=== PATIENT | male | born 1975 ===

== ENCOUNTER 2022-09-03 17:09 | Emergency (ER) | payer OTHER ==
[~2022-09-03] VITALS: Ht 177.8 cm; Wt 110.0 kg
[2022-09-03] MEDS ORDERED: EPINEPHrine 1:10,000 [1 MG/10 ML] SYRINGE IVP ONE (17:12)
[2022-09-03 17:20] LABS: BASOPHILS % (AUTO) 0.7 % (0.0-2.0); EOSINOPHILS % (AUTO) 0.2 % (1.0-6.0); HEMATOCRIT 39.8 % (41-53); HEMOGLOBIN 12.4 g/dL (13.5-17.5); LYMPHOCYTES # (AUTO) 5.3 K/uL (1.0-4.8); LYMPHOCYTES % (AUTO) 17.3 % (22.0-44.0); MEAN CORPUSCULAR HEMOGLOBIN 30.1 pg (26.0-34.0); MEAN CORPUSCULAR HGB CONC 31.2 G/dL (31.0-37.0); MEAN CORPUSCULAR VOLUME 96 fL (80-100); MONOCYTES # (AUTO) 1.7 K/uL (0.1-1.0); MONOCYTES % (AUTO) 5.4 % (2.0-9.0); NEUTROPHILS # (AUTO) 23.6 K/uL (1.8-7.7); NEUTROPHILS % (AUTO) 76.4 % (40.0-70.0); PLATELET COUNT (AUTO) 366 K/uL (150-450); RED BLOOD CELL COUNT(AUTO) 4.13 MIL/uL (4.50-5.90); RED CELL DISTRIBUTION WIDTH 14.1 % (11.5-14.5)
[2022-09-03] MEDS ORDERED: PIPERACILLIN/TAZO 3.375 GM/D5W 50 ML IV ONE (17:30)
[2022-09-03] MEDS ORDERED: VANCOMYCIN 1GM/WATER(PEG/NADA) 200 ML IV ONE (17:30)
[2022-09-03 17:37] LABS: APPEARANCE,URINE HAZY (CLEAR); BILIRUBIN,URINE NEGATIVE (NEGATIVE); GLUCOSE, URINE (UA) >=1000 mg/dL (NEGATIVE); KETONES,URINE NEGATIVE (NEGATIVE); LEUKOCYTE ESTERASE ,URINE LARGE (NEGATIVE); NITRATE,URINE NEGATIVE (NEGATIVE); OCCULT BLOOD,URINE LARGE (NEGATIVE); PROTEIN,URINE 30-70 mg/dL (NEGATIVE); SPECIFIC GRAVITIY, URINE 1.013 (1.003-1.030); UROBILINOGEN,URINE <=1.0 mg/dL (<=1.0)
[2022-09-03] MEDS ORDERED: VASOPRESSIN 40 UNITS in DEXTROSE 5%-WATER 98 ML IV PRN (17:45)
[2022-09-03 17:47] LABS: AMPHET/METH SCREEN,URINE POSITIVE (NEGATIVE); BARBITURATE SCREEN, URINE NEGATIVE (NEGATIVE); BENZODIAZEPINES SCREEN,URINE NEGATIVE (NEGATIVE); CANNABINOID SCREEN,URINE NEGATIVE (NEGATIVE); COCAINE SCREEN,URINE NEGATIVE (NEGATIVE); METHADONE SCREEN, URINE NEGATIVE (NEGATIVE); OPIATE SCREEN,URINE NEGATIVE (NEGATIVE)
[2022-09-03 17:48] LABS: B-TYPE NATRIURETIC PEPTIDE 137 pg/mL (0-100); INR 1.6 (0.9-1.1); PROTHROMBIN TIME 16.4 SEC (9.4-11.6)
[2022-09-03 17:50] LABS: PHENCYCLIDINE SCREEN,URINE NEGATIVE (NEGATIVE)
[2022-09-03 17:53] LABS: BACTERIA,URINE Many /HPF (None Seen); SQUAMOUS EPITHELIAL CELL,UR Few /LPF (None Seen)
[2022-09-03 17:54] LABS: AMORPHOUS SEDIMENT,UR Few /LPF (None Seen)
[2022-09-03] MEDS ORDERED: EPINEPHrine 2 MG in DEXTROSE 5%-WATER 248 ML IV PRN (18:00)
[2022-09-03 18:02] LABS: ALANINE AMINOTRANSFERASE 302 U/L (12-78); ALBUMIN 2.6 g/dL (3.4-5.0); ALKALINE PHOSPHATASE 269 U/L (46-116); ANION GAP 37 mmol/L (8-16); ASPARTATE AMINOTRANSFERASE 680 U/L (15-37); BILIRUBIN,TOTAL 1.3 mg/dL (0.1-1.0); CALCIUM, TOTAL 10.6 mg/dL (8.8-10.5); CHLORIDE 73 mmol/L (98-107); CREATININE 6.06 mg/dL (0.60-1.30); POTASSIUM 4.6 mmol/L (3.5-5.1); TOTAL PROTEIN, SERUM 8.6 g/dL (6.4-8.2)
[2022-09-03 18:04] LABS: COVID AG,FIA SOURCE NASOPHARYNGEAL
[2022-09-03] MEDS ORDERED: HEPARIN SODIUM 1000 UNITS/NS 500 ML ONE (18:07)
[2022-09-03] MEDS ORDERED: IOHEXOL 300 MG/ML 100 ML VIAL ONE (18:07)
[2022-09-03] MEDS ORDERED: SODIUM BICARBONATE 50 MEQ/50 ML VIAL ONE (18:07)
[2022-09-03] MEDS ORDERED: LIDOCAINE/PF 1% 30 ML VIAL ONE (18:07)
[2022-09-03 18:08] LABS: SODIUM SERUM 119 mmol/L (136-145)
[2022-09-03 18:09] LABS: CARBON DIOXIDE 9 mmol/L (22-29); CREATINE KINASE, TOTAL ONLY 6348 U/L (39-308); GLOMERULAR FILTR. RATE CALC 10 mL/min (>60); GLUCOSE,RANDOM 402 mg/dL (70-110); UREA NITROGEN, BLOOD 106 mg/dL (7-18)
[2022-09-03 18:10] LABS: LACTIC ACID 22.8 mmol/L (0.4-2.0)
[2022-09-03] MEDS ORDERED: POTASSIUM CHL 20 MEQ/0.45% NS 1,000 ML IV PRN (18:15)
[2022-09-03] MEDS ORDERED: INSULIN REGULAR, HUMAN 100 UNITS in SODIUM CHLORIDE 0.9% 99 ML IV PRN ×2 (18:15)
[2022-09-03] MEDS ORDERED: SODIUM CHLORIDE 0.45% 1,000 ML IV PRN (18:15)
[2022-09-03] MEDS ORDERED: DEXTROSE 5%-0.45% SODIUM CHL 1,000 ML IV PRN (18:15)
[2022-09-03] MEDS ORDERED: SODIUM CHLORIDE 0.9% 1,000 ML IV SCH (18:15)
[2022-09-03] MEDS ORDERED: POTASSIUM CHLORIDE 40 MEQ in SODIUM CHLORIDE 0.45% 1,000 ML IV PRN (18:15)
[2022-09-03] MEDS ORDERED: DEXTROSE 50%-WATER 25 GM/50 ML SYRINGE IVP PRN (18:15)
[2022-09-03] MEDS ORDERED: INSULIN REGULAR, HUMAN 100 UNITS/ML IVP PRN (18:15)
[2022-09-03] MEDS ORDERED: INSULIN REGULAR, HUMAN 100 UNITS/ML IVP ONE ×2 (18:15)
[2022-09-03 18:36] LABS: PHOSPHORUS 19.8 mg/dL (2.5-4.9)
[2022-09-03] MEDS ORDERED: SODIUM CHLORIDE 0.9% 1,000 ML IV ONE (18:45)
[2022-09-03 19:14] VITALS: BP 33/19
== END 2022-09-03 21:54 ==
LOC: EDBD 17:11 → EMS 17:11
DX: I46.9 Cardiac arrest, cause unspecified (principal); E11.10 Type 2 diabetes mellitus with ketoacidosis without coma; E11.22 Type 2 diabetes mellitus with diabetic chronic kidney disease; M62.82 Rhabdomyolysis; Z20.822 Contact with and (suspected) exposure to COVID-19; I10 Essential (primary) hypertension
CPT/HCPCS: 99291; 31500; 96365; 71045; 96375; 87426; 80053; 83930; 81001; 82009; 82550; 83605; 83735; 83880; 84100; 84484; 85025; 85610; 85730; 87040; 87205; 87086; 87077; 87186; 80307; 93005; 36415; G0480; J1644; J1815; J3490 ×3; Q9967 ×2; J7060 ×2; J0171 ×2; 92950; 94002; 96374